=== PATIENT | female | born 1990 | race Caucasian/White ===

== ENCOUNTER 2019-06-29 10:19 | Day surgery (SDC) | payer OTHER, SELFPAY ==
--- NOTE | 2019-06-28 11:24 | HP_ITS ---
Intake Vital Signs 06/25/19 Height 5 ft 4 in 06/25/19 Weight: 175 lb 06/25/19 BMI 30.0 06/25/19 BP 130/88 H 06/25/19 Blood Pressure Location Rt brachial 06/25/19 Position Sitting 06/25/19 Respiration 16 06/25/19 Pulse 87 06/25/19 Pulse Source Monitor 06/25/19 Temp 98.5 F 06/25/19 Temp Source Oral 06/25/19 Pulse Oximetry (%) 99 06/25/19 Oxygen Delivery Method room air Intake Visit Reasons: RUQ ABDOMINAL PAIN Bath House Attendant Required: No Is patient in pain?: No Allergies amoxicillin [From Augmentin] Allergy (Unknown, Verified 06/28/19 08:30) Unknown clavulanic acid [From Augmentin] Allergy (Unknown, Verified 06/28/19 08:30) Unknown Medications ascorbate calcium (vitamin C) 500 mg tablet 500 mg PO DAILY 06/25/19 [History Confirmed 06/28/19] bupropion HCl 150 mg 24 hr tablet, extended release 150 mg PO BID tab 06/25/19 [History Confirmed 06/28/19] cholecalciferol (vitamin D3) 10,000 unit capsule 10,000 unit PO DAILY 06/25/19 [History Confirmed 06/28/19] lamotrigine 200 mg tablet 200 mg PO BID tab 06/25/19 [History Confirmed 06/28/19] lorazepam 0.5 mg tablet 0.5 mg PO TID PRN tab 06/25/19 [History Confirmed 06/28/19] topiramate 50 mg tablet 50 mg PO DAILY tab 06/25/19 [History Confirmed 06/28/19] [facility] Medical History Constipation (Acute) Nausea (Acute) Abdominal pain (Acute) Asthma (Acute) Anxiety (Acute) Depression (Acute) Surgical History Hx of hernia repair (Acute) Family History Mother Arthritis Social History (Updated 06/28/19 @ 11:25 by Jaron Reynaga MD) Smoking Status: Never smoker second hand exposure: No alcohol intake: current alcohol intake frequency: holidays/special occasions only substance use type: does not use caffeine: Yes what type of physical activity do you participate in: none frequency: does not exercise HPI HPI HPI: JAE EDWARDS, is a 28 F who presents to the office today for HPI HPI Surgical H&P: Yes HPI: JAE EDWARDS, is a 28 F who presents to the office today for Evaluation of right upper quadrant abdominal pain. Patient has been havingLittle more than a week's worth of discomfort particularly after she eats. A gallbladder ultrasound was obtained which showed gallbladder sludge.Her urine has not been dark. And her stools have been normal to the constipated side. ROS General General: Yes weight change; no appetite, fatigue, colon cancer, breast cancer or weakness HEENT HEENT: No difficulty swallowing, eye injury, eye surgery, swollen glands or hoarseness Endo Endocrine: No thyroid disease, diabetes mellitus, thyroid cancer, Hair loss, heat intolerance or cold intolerance Skin Skin: No rash or changing moles Musc Musculoskeletal: No back problems, arthritis, rheumatoid arthritis, gout or joint pain Cardio Cardiovascular: No murmur, pacemaker, heart disease, atrial fibrillation, high blood pressure, heart attack, heart stent, palpitations, shortness of breat with exertion or chest pain Psych Psychiatric: Yes depression and anxiety; no hearing voices Resp Respiratory: No shortness of breath, No sleep apnea, No cough, No COPD, Yes asthma, No emphysema, No wheezing Gastro Gastrointestinal: Yes abdominal pain, Yes nausea or vomiting, No diarrhea, Yes constipation, No blood in stool, No acid reflux, No hemorrhoids, No ulcers, Yes gallbladder problem, No black,tarry stools Abdulaziz Hematologic: No blood thinners, No blood disorders, No bleeding, No anemia, No blood clots Neuro Neurologic: No system reviewed and no additional complaints, except as docu, No as per HPI, No abnormal walking, No abnormal hearing, No abnormal movements, No abnormal speech, No behavioral changes, No burning sensations, No confusion, No seizure-like activity, No unsteadiness, No dizziness, No localized weakness, No frequent falls, No headache(s), No lack of coordination, No loss of vision, No memory loss, No numbness, No other visual disturbances, No radiating pain, No restless legs, No sensory deficit, No fainting, No tingling, No tremor(s), No weakness, No other Exam Const General: no acute distress, well developed, well hydrated Orientation: oriented to person, oriented to place, oriented to time [facility] Head: normocephalic, atraumatic Ears: external ears normal Mouth: moist mucous membranes Eyes Sclera: sclerae normal Pupils: normal by confrontation Neck Neck: no lymphadenopathy noted Neck mass: No Thyroid: thyroid normal, symmetrical Chest Chest palpation & inspection: normal inspection of the chest Resp Effort & Inspection: normal respiratory effort Auscultation: clear to auscultation bilaterally Percussion: percussion normal Cardio Rate: regular rate Rhythm: regular rhythm Heart Sounds: no murmurs GI Palpation: soft, no hepatosplenomegaly, no masses, tender Auscultation: normal bowel sounds Rectal Exam: other Other: Rectal exam deferred. Extrem General: normal to inspection, no clubbing, cyanosis or edema Assessment & Plan Problems 1. Right upper quadrant abdominal pain R10.11 2. Gallbladder sludge K82.8 Plan Reviewed the anatomy with the patient and discussed the procedure: laparoscopic cholecystectomy with possible cholangiograms, possible open. Review risks including but not limited to bleeding, infection, hernia, bile leak, retained gallstones requiring another procedure ERCP- Endoscopic Retrograde Cholangiopancreatography, injury to another organ (bile ducts, common bile duct, small bowel, etc.) and conversion to an open procedure. All questions were answered. Coding Level of Care Code Off vis,new,level 3 Diagnoses Right upper quadrant abdominal pain R10.11 Gallbladder sludge K82.8 06/28/19 1125 <Electronically signed by Jaron ricks MD> Date _ Jaron Reynaga MD I have re-examined the patient. There are no clinical changes since date of exam.
[2019-06-29] VITALS (7 sets, daily range): BP systolic 129–137; BP diastolic 79–95; PULSE 78–96; RESP 16–18; TEMP 36.3–37.7; O2SAT 94–100; BMI 32.3
--- NOTE | 2019-06-29 10:31 | EKG12_ITS ---
Test Reason : PREOP Blood Pressure : / mmHG Vent. Rate : 090 BPM Atrial Rate : 090 BPM P-R Int : 144 ms QRS Dur : 084 ms QT Int : 348 ms P-R-T Axes : 054 030 021 degrees QTc Int : 425 ms Normal sinus rhythm Normal ECG No previous ECGs available Confirmed by JAYDON LEE ([id number]), continuity editor JOHN RAMOS ([id number]) on 07/02/2019 1:35:21 PM Referred By: Jaydon Reynaga Confirmed By:JAYDON LEE
[2019-06-29] MEDS: Lactated Ringers 1,000 ML 100 ML IV (10:52)
[2019-06-29 11:26] LABS: Internal QC Validated? YES +Cl - CLEAR BKGD; Pregnancy, Urine Negative Negative
[2019-06-29] MEDS: Cefazolin 2 GM in 0.9% Normal Saline 100 ML IV (11:30)
--- NOTE | 2019-06-29 11:39 | PCM.OPRPT ---
Problem List (1) Gallbladder sludge Status: Acute (2) Right upper quadrant abdominal pain Status: Acute Report of Operation Date of Procedure: 06/29/19 Pre-Operative Diagnosis: 1. Gallbladder sludge. 2. Right upper quadrant abdominal pain Post-Operative Diagnosis: Same Surgery/Procedure Performed:: Laparoscopic cholecystectomy Type of Anesthesia:: General Anesthesiologist: Aldair Rivas Specimen's removed: Gallbladder Estimated Blood Loss (mL): < 25 cc Fluids Replaced: 600 cc LR Description of Procedure: Patient was brought into the operating room. Placed in the supine position. Under excellent general trach intubation abdomen was sterilely prepped and draped in usual fashion. Local was injected infraumbilically. Dissection was carried down to the fascia. Fascia was grasped with a [place]. Varies needle was placed inside the abdomen. The abdomen was insufflated to 15 torr. A 10/12 trocar was placed without difficulty. Patient was placed in the head up and rotated to the left position. Right upper quadrant #5 trocar was placed a subxiphoid #5 trocar was placed and inferior to this another #5 trocar was placed all these under direct visualization without injury to underlying structures. Fundus of the gallbladder was grasped retracted in a cephalad direction. Infundibulum was grasped and retracted laterally. I dissected out the cystic duct. Hemoclips were placed proximally and distally and the duct was ligated. Identified the cystic artery. 2 hemo-lock clips were placed proximally one distally and it was ligated. I deliver the gallbladder from the gallbladder bed with use of electrocautery there was no spillage of bile or stones. I placed a specimen a specimen bag and delivered through the umbilical port without difficulty. Reinflated the abdomen. Inspection of the right upper quadrant revealed good pneumostasis. The trochars were removed under direct visualization. Good mistakes was noted. Fascia the umbilical port was closed with a [id number] stitch of 0 Vicryl. Skin incisions were closed with subcuticular stitches of 4-0 Monocryl. Steri-Strips were applied sterile dressings were applied and the patient tolerated the procedure well. - Admit VTE Documentation VTE Present on Admission: No VTE Mechan Device Prophylaxis: SCD's VTE Pharm Prophylaxis ordered?: No Reason prophylaxis not ordered:: Treatment Not Indicated
--- NOTE | 2019-06-29 11:40 | DCINST_ITS ---
Discharge Diet: Light diet - advance as tolerated Discharge Activity: May Not Drive - for 2-3 days or while taking narcotic pain medications., - - Do not drive, work heavy equipment or sign legal documents for 24 hours. May shower in (days): 1 - with the bandage in place. Additional Activity Instructions:: Pain medication may cause nausea. You should typically eat light foods as you take your pain medications. Pain medication may also cause constipation. If this is a problem for you, please discuss with your doctor. Call your doctor if your incision/area has: Continuous Slow Oozing, Sudden Increased Bleeding, Increased Pain/ Swelling, Increased Redness, Foul Smelling Discharge Call your doctor if you observe: Fever of 101 or Higher Suture Line Care: Avoid Pulling/Pushing, Avoid Pinching/Bending Additional Dressing/Incision Instructions:: Leave operative bandaids on for 2 days. When you remove dressing, leave Steri-Strips on until your follow-up appointment, or until the Steri-Strips fall off on their own. Allergies/Adverse Reactions: Allergies amoxicillin [From Augmentin] Allergy (Unknown, Verified 06/29/19 10:37) Unknown no issue with amoxicillin. Rash with augmentin as a child clavulanic acid [From Augmentin] Allergy (Unknown, Verified 06/29/19 10:37) Unknown Medications to take at Discharge ascorbate calcium (vitamin C) 500 mg tablet 500 mg PO DAILY 06/25/19 bupropion HCl 150 mg 24 hr tablet, extended release 150 mg PO BID tab 06/25/19 cholecalciferol (vitamin D3) 250 mcg (10,000 unit) capsule 10,000 unit PO DAILY 06/25/19 lamotrigine 200 mg tablet 200 mg PO BID tab 06/25/19 lorazepam 0.5 mg tablet 0.5 mg PO TID PRN tab 06/25/19 topiramate 50 mg tablet 50 mg PO DAILY tab 06/25/19 Oxycodone HCl/Acetaminophen [Percocet 5/325] 1 - 2 tab PO Q4H PRN PRN 7 Days #30 tab 06/29/19 The following prescriptions were given: Oxycodone HCl/Acetaminophen [Percocet 5/325] 1 - 2 tab PO Q4H PRN PRN 7 Days #30 tab PRN Reason: Pain Transmission Status: Sent to [facility] Primary Care Physician: Jessica Stallworth PA-C [Primary Care Provider] - Test Results: Test results from this visit will be discussed in further detail at your follow- up appointment, if applicable. Please Follow Up With: Jaron Reynaga MD - Please call [phone] to schedule an appointment. When: 7 days after your surgery.
[2019-06-29] MEDS: Bupivacaine Mpf 0.5% 30 ML VIAL (12:00)
--- NOTE | 2019-06-29 12:00 | GALL_PTH ---
PATIENT: JAE EDWARDS LOC: [facility] [place] U#:[id number] AGE/SX: 28/F ROOM: RE06/29/[address]: Dr. Jaron Reynaga MD : [id number] BED: DIS: 06/29/2019 SPEC #: [id number] RECD: 06/29/19 13:59 STATUS: MICAELA RELuz #: [id number] ADRIANO: 06/29/19 12:[address]: Jaron Reynaga DEPT: SURGICAL PATHOLOGY RECD BY: Nakita Lang ENTERED: 06/29/19 14:33 SP TYPE: TERI MARQUEZ DR: Jessica Stallworth PA-C Tissues: Gallbladder, NOS Procedures: Surgery Specimen Level III HEADER OPERATION: Laparoscopic, cholecystectomy PRE-OP DIAGNOSIS: Right upper quadrant pain, gallbladder sludge TISSUE SUBMITTED: Gallbladder MICROSCOPIC DIAGNOSIS Gallbladder, cholecystectomy: Mild chronic cholecystitis and cholesterolosis. No stones are identified in the container or in the gallbladder. SJ:tracey 06/30/19 MICROSCOPIC DESCRIPTION Slides are reviewed. GROSS DESCRIPTION Received is one container labeled with the patient's name and designated gallbladder. The specimen consists of a gallbladder measuring 8.5 cm in length and up to 3.5 cm in diameter. The external surface is pink-le, smooth and glistening for the most part. Focally it is granular, hemorrhagic and contains cautery artifact. The gallbladder contains green-yellow mucoid bile. No stones are identified in the container or in the gallbladder. The mucosa also shows several yellowish streaks consistent with cholesterolosis. The mucosa is bile-stained and without any mass lesions. The gallbladder wall measures up to 0.1 cm in thickness. V[employer] T[employer] Machine Offbearer sections from the gallbladder and the cystic duct are submitted in one cassette. / JORDAN:tracey 06/29/19 TC:3 CPT: 26911
[2019-06-29] MEDS: oxyCODONE 5 MG Tablet PO (13:50)
[2019-06-29] MEDS: Acetaminophen 325 MG Tablet PO (13:50)
== END 2019-06-29 14:55 | disposition home or self-care (01) ==
LOC: SDC 10:20 → AC 10:22
PROVIDERS: Anesthesiology; PCP Family Medicine; Referring Provider Surgery; Visit Provider Surgery
PROC: (CPT 47562; principal; 2019-06-29 11:40)
DX: K81.1 Chronic cholecystitis (principal); F41.9 Anxiety disorder, unspecified; F31.81 Bipolar II disorder; J45.909 Unspecified asthma, uncomplicated; G43.909 Migraine, unspecified, not intractable, without status migrainosus; Z79.899 Other long term (current) drug therapy
CPT/HCPCS: 00790; 47562; 81025; 88304; 93005; J7120; J2405